=== PATIENT | male | born 1960 | race Caucasian/White ===

== ENCOUNTER 2024-04-15 04:51 | Emergency (ER) | payer OTHER, SELFPAY ==
[2024-04-15] VITALS (7 sets, daily range): BP systolic 111–138; BP diastolic 79–93; BMI 22.8
[2024-04-15 05:51] LABS: % Basophils 0.6 % (0-2); % Eosinophils 1.1 % (0-6); % Immature Granulocytes 0.2 % (0-0.5); % Lymphocytes 19.6 % (20.5-51.1); % Monocytes 6.3 % (1.7-9.3); % Neutrophils 72.2 % (42.2-75.2); Absolute Eosinophils 0.1 10^3/uL (0-0.7); Absolute Lymphocytes 1.3 10^3/uL (1.2-3.4); Absolute Monocytes 0.4 10^3/uL (0.1-0.6); Absolute Neutrophils 4.8 10^3/uL (1.4-6.5); Hematocrit 42.1 % (39.0-52.0); Hemoglobin 15.3 g/dL (13.0-18.0); Mean Corp Hgb Conc. 36.3 g/dL (33.0-37.0); Mean Corpuscular Hgb 31.3 pg (27.0-31.0); Mean Corpuscular Volume 86.1 fL (80.0-94.0); Mean Platelet Volume 10.3 fL (7.4-10.4); Nucleated Red Blood Cells % 0 % (-); Platelet Count 243 10^3/uL (130-400); Red Blood Cell Count 4.89 10^6/uL (4.70-6.10); Red Cell Dist. Width 12.4 % (11.5-14.5); White Blood Cell Count 6.6 10^3/uL (4.8-10.8)
[2024-04-15 06:01] LABS: ALT (SGPT) 59 U/L (0-50); AST (SGOT) 44 U/L (17-59); Albumin 4.8 g/dl (3.5-5.0); Alkaline Phosphatase 74 U/L (38-126); Blood Urea Nitrogen 12 mg/dl (9-20); Calcium 10.1 mg/dl (8.4-10.2); Carbon Dioxide 26 mmol/L (22-30); Chloride 102 mmol/L (98-107); Estimated Creatinine Clearance 75 ml/min; Glucose 109 mg/dl (70-99); Potassium 3.8 mmol/L (3.5-5.1); Sodium 140 mmol/L (135-145); Total Bilirubin 0.9 mg/dl (0.2-1.3); Total Protein 7.6 g/dl (6.3-8.2); eGFR > 60.00
[2024-04-15 06:03] LABS: Urine Albumin Negative (Neg - Trace); Urine Bilirubin Negative (Negative); Urine Character Clear (Clear); Urine Color Yellow; Urine Glucose Negative (Negative); Urine Ketone Negative (Negative); Urine Leukocyte Negative (Negative); Urine Nitrite Negative (Negative); Urine Occult Blood Negative (Negative); Urine Urobilinogen Negative (Neg - 1+)
[2024-04-15 06:13] LABS: Troponin I < 0.012 ng/ml
--- NOTE | 2024-04-15 06:50 | EDRN ---
Dr. Snowden in to see pt.
--- NOTE | 2024-04-15 06:57 | ED.GENMED ---
History of Present Illness
General
Chief Complaint: Back Pain
Source: patient
Exam Limitations: none
Time Seen by Provider: 04/15/24 06:48
History of Present Illness
History of Present Illness:
See MDM
Past History
Past History
ED Past Medical History: Hypercholesterolemia
ED Past Surgical History: Other (Patient has had a history of endoscopy and colonoscopy)
Social History
Tobacco: Non-smoker
Alcohol: Occasional
Drug: None
Personal:
Living: with family
Phy Exam
Physical Exam
Physical Exam:
See MDM
Course
Orders/Labs/Results
Orders:
Orders
04/15/24 05:12
Electrocardiogram (*1) Urgent
Reason for Study: Chest Pain
Other Reason for Exam: No chest pain, c/o R back pain
04/15/24 05:13
EKG- Treatment ONCE
04/15/24 05:38
CMP [Comprehensive Metabolic Panel] Urgent
Complete Blood Count/With Diff Urgent
Troponin I Urgent
04/15/24 05:54
Urinalysis Reflex To Culture Urgent
Date Specimen was Collected: 04/15/24
Time Specimen was Collected: 05:13
04/15/24 06:57
Ketorolac [Toradol] 30 mg IV NOW STA
04/15/24 07:12
D-Dimer Urgent
04/15/24 08:21
CR Chest - 2 Views Urgent
Comment:
Reason For Exam: Left side chest pain
Abnormal Lab Results
04/15/24
05:38
MCH 31.3 H pg
(27.0-31.0)
Lymphocytes % 19.6 L %
(20.5-51.1)
Glucose 109 H mg/dl
(70-99)
ALT 59 H U/L
(0-50)
04/15/24 05:38
04/15/24 05:38
Vital Signs
Initial and Last Documented VS:
Initial Vital Signs
Temp Pulse Resp BP Pulse Ox
98.7 F 91 15 126/86 96
04/15/24 05:05 04/15/24 05:05 04/15/24 05:05 04/15/24 05:05 04/15/24 05:05
Last Documented Vital Signs
Temp Pulse Resp BP Pulse Ox
98.7 F 73 25 111/83 92
04/15/24 05:05 04/15/24 08:00 04/15/24 08:00 04/15/24 08:00 04/15/24 08:00
MDM/Problems Addressed
Differential Diagnosis Includes:
HPI and MDM Narrative:
63-year-old male presenting for evaluation of relatively constant left-sided chest and back pain. Patient got worried because he had an episode of nausea yesterday. He states he never gets nauseous. He is unsure if any of this is related to
recent bug bites to his left elbow. He noticed the bug bites yesterday. He complains of significant swelling but symptoms did not improve with Benadryl. He states he had a normal stress test a year ago.
We discussed that there is likely not a relationship between the bug bites and chest pain. EKG and troponin are negative. However, given his steady pain, will obtain D-dimer
Physical exam
General: Well appearing and non-toxic
HEENT: protecting airway
Neck: appears supple
CV: No evidence of cyanosis. Regular rate and rhythm
Resp: No accessory muscle use. Lungs clear
Abd: Non-distended. No significant tenderness elicited
Extremities: No deformities
Neuro: alert
Psych: Normal affect
Skin: Intact
Problems Addressed including Acute and Chronic Conditions affecting care:
1. Chest pain
Acuity: acute
Prognosis: stable
Details: Discussed likely noncardiac given no exertional symptoms and normal troponin. Will obtain D-dimer
Updates
On reassessment after Toradol, symptoms all resolved. D-dimer negative. Chest x-ray clear. Patient now questioning whether or not it could have been a muscle spasm. He feels comfortable going
Differential Diagnosis (but not limited to): Pneumothorax, ACS, noncardiac chest
Testing considered: CT chest but will obtain D-dimer first
Drug therapy (if applicable): OTC meds, please see d/c instruction regarding Rx drugs
Amount and/or Complexity of Data Reviewed
Clinical info obtained from: Patient
External data reviewed: N/A
Labs I independently reviewed (but not limited to): Troponin normal
Radiology: X-ray independently reviewed: Chest x-ray clear
Pulse Ox: not hypoxic
EKG independently reviewed: Sinus rhythm, normal axis, No Stemi
[employer]: N/A
Critical Care: N/A
Risk of Complication:
Social Determinants of health: Good social support
Discussed with other providers: N/A
Escalation of Care includes Admit/Obs: After being observed in the Emergency Department, pt stable for discharge.
Occasional wrong word or 'sound a like' substitutions may have occurred due to the inherent limitations of voice recognition software. Read the chart carefully and recognize, using context, where substitutions have occurred.
*Critical Care Note
Total Time (30-74mins, 75-104mins- exclusive of procedures): Not Applicable
ED Attending Note
-
Portions of this chart may have been created with voice recognition software.� Occasional wrong word or��sound alike� substitutions may have occurred due to the inherent limitations of voice recognition software.
Discharge Plan
Departure
Patient Disposition: Home (Routine Discharge)
Date of Disposition: 04/15/24
Time of Disposition: 09:42
Patient with high blood pressure during this ER visit?: No
Discharge Problem:
Back pain
Instructions: Upper Back Pain (DC)
Prescriptions:
New
diclofenac potassium 50 mg tablet
50 mg PO BID Qty: 20 0RF
No Action
cephalexin 500 MG capsule
500 mg PO QID Qty: 39 0RF
Referrals:
Franc Lomas, DO [Family Provider] -
Activity Restrictions/Additional Instructions:
Please return for any worsening symptoms.
You may return at any time if you have further concerns.
Please follow up with your doctor at the first available appointment, preferably this week.
Thank you for choosing [facility]
Interventions
Interventions:
*Risk Screen - Suicide Last Done: 04/15/24 05:49
*General Assessment Last Done: 04/15/24 05:49
*Neglect/Abuse Screening Last Done: 04/15/24 05:49
ED- Fall Risk Assessment Last Done: 04/15/24 05:49
*ED COVID-19 Vaccine History Last Done: 04/15/24 05:49
ED-Musculoskeletal Assessment Last Done: 04/15/24 07:18
Discharge Date and Time
Print Language: LATVIAN
[2024-04-15] MEDS: TORADOL 30 MG IV (07:15)
[2024-04-15 07:32] LABS: D-Dimer 0.34 ug/mlFEU (0.00-0.50)
== END 2024-04-15 10:30 | disposition home or self-care (01) ==
LOC: EMR 04:51
PROVIDERS: Emergency Medicine; EMERGENCY PHYSICIAN Student in an Organized Health Care Education/Training Program; FAMILY PHYSICIAN Family Medicine
DX: M54.9 Dorsalgia, unspecified (principal); R07.89 Other chest pain; R11.0 Nausea; M79.89 Other specified soft tissue disorders; S50.362A Insect bite (nonvenomous) of left elbow, initial encounter; W57.XXXA Bitten or stung by nonvenomous insect and other nonvenomous arthropods, initial encounter; E78.00 Pure hypercholesterolemia, unspecified
CPT/HCPCS: 99284; 96374; 71046; 80053; 81003; 84484; 85025; 85379; 93005